=== PATIENT | male | born 1985 | race Hispanic/Latino ===

== ENCOUNTER 2017-06-24 21:23 | Emergency (ER) | payer OTHER ==
[~2017-06-24] VITALS: Ht 175.3 cm; Wt 80.0 kg
[2017-06-24 21:24] VITALS: BP 141/80
[2017-06-24] MEDS ORDERED: TYLE325T5 PO (21:32)
[2017-06-24] MEDS ORDERED: CYCL10TA PO (23:00)
[2017-06-24] MEDS ORDERED: IBUP-1022 PO (23:00)
[2017-06-24] MEDS ORDERED: TRAM50TA2 PO (23:00)
[2017-06-24] MEDS ORDERED: PERCOCET 5MG/325MG TAB PO ONE (23:15)
[2017-06-24] MEDS ORDERED: CYCLOBENZAPRINE 10 MG TAB PO ONE (23:15)
== END 2017-06-24 23:45 | disposition home or self-care (01) ==
LOC: M ED 21:23
DX: M94.0 Chondrocostal junction syndrome [Tietze] (principal); G89.29 Other chronic pain; M54.9 Dorsalgia, unspecified

== ENCOUNTER 2019-02-12 08:46 | Day surgery (SDC) | payer OTHER ==
[~2019-02-12] VITALS: Ht 175.3 cm; Wt 88.0 kg
[~2019-02-12 08:46] MED LIST: CYCL10TA PO; GABA-843 PO; IBUP-1022 PO; LUNE2TAB23 PO; NS 1,000 ML IV ONE; OMEP-221; SYNT25TA; TIZA2TA; TRAM50TA2 PO; TYLE325T5 PO; VALA1TAB2
[2019-02-12] MEDS ORDERED: PROPOFOL 200 MG/20 ML VIAL As Ordered ONE ×2 (10:18→10:24)
[2019-02-12] MEDS ORDERED: LIDOCAINE 2% INJ 100 MG/5 ML SDV (FOR ANES.) As Ordered ONE (10:19)
--- NOTE | 2019-02-12 10:32 | ROOR ---
Patient Name: Jhonny Ku Procedure Date: 02/12/2019 10:12 AM Date of : 1985 Age: 34 Room: [facility] Gender: Male Note Status: Finalized Procedure: Upper Endoscopy + Biopsies Indications: Dysphagia, Heartburn Providers: Robert Arenas MD Referring MD: MARCIO BUCKLEY MD Requesting Provider: Medicines: Monitored Anesthesia Care Complications: No immediate complications. Procedure: Pre-Anesthesia Assessment: - The heart rate, respiratory rate, oxygen saturations, blood pressure, adequacy of pulmonary ventilation, and response to care were monitored throughout the procedure. The Endoscope was introduced through the mouth, and advanced to the second part of duodenum. The upper GI endoscopy was accomplished without difficulty. The patient tolerated the procedure well. Findings: The Z-line was regular and was found 40 cm from the incisors. A TTS dilator was passed through the scope. Dilation with an 18-19-20 mm balloon dilator was performed to 20 mm. Mucosal changes were found in the mid esophagus. Biopsies were taken with a cold forceps for histology. The exam was otherwise without abnormality. Impression: - Z-line regular, 40 cm from the incisors. Dilated. - Esophageal mucosal changes suspicious for eosinophilic esophagitis. Biopsied. - The examination was otherwise normal. Recommendation: - Await pathology results. - Discharge patient to home. - Follow an antireflux regimen. - Use Prilosec (omeprazole) 40 mg PO daily. - Await pathology results. - Telephone GI clinic for pathology results in 1 week. - Return to referring physician. - The findings and recommendations were discussed with the patient's family. Robert Arenas MD Robert Arenas MD 02/12/2019 10:31:55 AM Electronically signed by Robert Arenas MD Number of Addenda: 0 Note Initiated On: 02/12/2019 10:12 AM Estimated Blood Loss: Estimated blood loss: none.
[2019-02-12 10:50] VITALS: BP 127/83
== END 2019-02-12 11:00 | disposition home or self-care (01) ==
LOC: M OPP 08:46
PROVIDERS: ATTEND Internal Medicine Gastroenterology
DX: K22.8 Other specified diseases of esophagus (principal); R13.10 Dysphagia, unspecified; R12 Heartburn

== ENCOUNTER → 2019-05-25 | Outpatient (CLI) | payer OTHER ==
[~2019-05-25] MED LIST changes: -NS 1,000 ML IV ONE; -VALA1TAB2; +VALA1TAB64
--- NOTE | 2019-05-25 15:46 | REP ---
MRI of the cervical spine without contrast Indication: Other spondylosis, cervical region. Comparison: None Technique: MRI of the cervical spine was performed utilizing sagittal T1 FLAIR, STIR, and T2 weighted imaging as well as axial T1 and T2-weighted imaging. No intravenous contrast was administered. Findings: There is straightening of cervical lordosis with maintenance of alignment. Vertebral body heights and intervertebral disc heights are maintained. There is no bone marrow edema. The visualized spinal cord is normal in signal intensity. The paraspinal soft tissues are within normal limits. Level specific observations: C2-C3: No significant spinal canal stenosis or neural foraminal narrowing. C3-C4: Diffuse disc bulge. C4-C5: Diffuse disc bulge with superimposed right paracentral disc protrusion. Effacement of the ventral thecal sac with abutment of the right ventral margin of the spinal cord. C5-C6: Diffuse disc bulge. C6-C7: Diffuse disc bulge. C7-T1: No significant spinal canal stenosis or neural foraminal narrowing. Impression: Multilevel cervical spondylosis, most notably at C4-C5 with right paracentral disc protrusion and abutment of the right ventral margin of the cord and mild right-sided narrowing of the canal. No significant spinal canal stenosis or neural foraminal narrowing elsewhere within the cervical spine. Electronically Signed by Sixto Amezquita MD 05/25/2019 03:37 P
== END ==
LOC: M PLARAD 13:01
PROVIDERS: ATTEND Physician Assistant
DX: M47.892 Other spondylosis, cervical region (principal)